=== PATIENT | female | born 1995 | race African-American/Black ===

== ENCOUNTER 2019-11-12 10:42 | Emergency (ER) | payer OTHER, SELFPAY ==
[2019-11-12 11:11] VITALS: BP 150/99; PULSE 102; RESP 18; TEMP 37.4; O2SAT 100
--- NOTE | 2019-11-12 11:48 | ED.URI ---
HPI - URI/Sore Throat General Chief Complaint: Upper Respiratory Infection Stated Complaint: Strep since Friday Time Seen by Provider: 11/12/19 11:31 Source: patient Mode of arrival: ambulatory Limitations: no limitations History of Present Illness HPI Narrative: This is a 24 year old female that presents to the ER for cold symptoms x 5 days. Reports fever, rhinorrhea, congestion and sore throat. Reports she was seen by her PCP for this 3 days ago and diagnosed with strep throat. She has been taking her antibiotics as prescribed with little relief. Denies shortness of breath or inability to swallow. Related Data Allergies Allergy/AdvReac Type Severity Reaction Status Date / Time No Known Allergies Allergy Verified 11/12/19 11:15 Review of Systems Review of Systems: Narrative: CONSTITUTIONAL: Reports fever, chills ENT: Reports rhinorrhea, congestion, sore throat, and otalgia. RESPIRATORY: Denies dyspnea. All systems reviewed & are unremarkable except as noted in HPI and below PMFSH Past Medical History Medical History (Updated 11/12/19 @ 12:34 by Lilian Jolley PA-C) Eczema of lower extremity Vitamin deficiency Wrist pain Family History Family History (Updated 11/09/19 @ 08:14 by Michelle Aguilera CMA) Mother Type 2 diabetes mellitus Social History Social History Smoking status: Never smoker Alcohol intake: current Gender identity (if verbalized by the patient): Female Exam Narrative: Exam Narrative: GENERAL: Well-appearing, obese, and in no acute distress. HEAD: Normocephalic, atraumatic. EYES: EOMI. ENT: Nares clear, no rhinorrhea or epistaxis. Mucous membranes moist. Oropharynx with mild symmetric tonsillar hypertrophy, no exudate or other lesions. Uvula midline. No trismus. Bilateral TMs pearly starr non-bulging NECK: Supple. No adenopathy or masses. CHEST: Clear to auscultation. No respiratory distress. No wheezes rales or rhonchi HEART: Regular rate and rhythm. No murmur heard. Normal peripheral pulses. EXTREMITIES: Normal range of motion. No edema. SKIN: Warm, dry, no rash. NEURO: No focal deficits. Alert and oriented x3. PSYCH: Normal mood and affect Course Vital Signs Vital signs: Vital Signs Temperature 99.4 F 11/12/19 11:11 Pulse Rate 102 H 11/12/19 11:11 Respiratory Rate 18 11/12/19 11:11 Blood Pressure 150/99 H 11/12/19 11:11 Pulse Oximetry 100 11/12/19 11:11 Temperature 99.4 F 11/12/19 11:11 Pulse Rate 102 H 11/12/19 11:11 Respiratory Rate 18 11/12/19 11:11 Blood Pressure 150/99 H 11/12/19 11:11 Pulse Oximetry 100 11/12/19 11:11 MDM - URI/Sore Throat MDM Narrative Medical decision making narrative: Patient presents to the emergency department for sore throat times 5 days. She was seen by her PCP for this 3 days ago and started on Augmentin. Reports little relief. She is afebrile and nontoxic-appearing. Mild symmetric tonsillar hypertrophy, uvula is midline. No evidence for peritonsillar abscess. Influenza screen is negative. Patient Lab Data Labs: Influenza A Screen Negative Reference Range: Negative Influenza B Screen Negative Reference Range: Negative Critical Care Time Critical Care Time Critical Care Time: No Discharge Plan Discharge Clinical Impression: Strep throat Patient Disposition: Home, Self-Care Condition: Stable Instructions: Antibiotic Form, Strep Throat (ED) Additional Instructions: Return to the emergency department if you experience fever > 101, you are unable to swallow, trouble breathing, or any other symptoms that are concerning to you Finish antibiotics as prescribed. You may use lozenges or Chloraseptic spray for sore throat. Tylenol or ibuprofen for pain. Take steroid as prescribed Follow-up with your primary care doctor Prescriptions: New methylprednisolone 4 mg tablets,dose pack See Rx Instructions .ROUTE .COMPLEX Qty: 21 RF:
== END 2019-11-12 12:52 | disposition home or self-care (01) ==
PROVIDERS: Emergency Provider Emergency Medicine; PCP Internal Medicine
DX: J02.0 Streptococcal pharyngitis (principal); E56.9 Vitamin deficiency, unspecified
CPT/HCPCS: 87804; 99283

== ENCOUNTER 2021-11-05 08:44 | Outpatient (CLI) | payer OTHER, SELFPAY ==
[2021-11-05 09:27] LABS: Basophils Absolute Auto 0.1 K/mm3 (0.0-0.1); Basophils Percent Auto 0.7 % (0.2-1.2); Eosinophils Absolute Auto 0.1 K/mm3 (0-0.3); Eosinophils Percent Auto 1.2 % (0-4.4); Hematocrit 42.8 % (37.0-47.0); Hemoglobin 13.5 g/dL (12.0-15.0); Immature Granulocyte Absolute 0.01 K/mm3 (0.00-0.031); Immature Granulocyte Percent A 0.1 % (0-0.5); Lymphocytes Absolute Auto 1.94 K/mm3 (0.9-3.2); Mean Corpuscular HGB Conc 31.5 g/dl (32-36); Mean Corpuscular Hemoglobin 25.4 pg (26-34); Mean Corpuscular Volume 80.6 fl (80-100); Monocytes Absolute Auto 0.7 K/mm3 (0.1-0.6); Monocytes Percent Auto 9.5 % (2.6-8.5); Neutrophils Absolute Auto 4.7 K/mm3 (1.3-6.7); Neutrophils Percent Auto 62.5 % (45.5-73.1); Platelet Count Result 311 k/mm3 (150-375); Red Blood Count 5.31 M/mm3 (4.2-5.4); Red Cell Distribution Width 13.2 % (11.5-14.5); White Blood Count 7.5 K/mm3 (4.5-10.0)
[2021-11-05 09:36] LABS: Add Urine Microscopic? YES; Appearance Urine Clear (Clear); Bacteria Urine Trace /hpf; Bilirubin Urine Negative (Negative); Blood Urine Negative (Negative); Color Urine Yellow (Yellow); Glucose Urine UA Negative (Negative); Ketones Urine Negative (Negative); Leukocyte Esterase Ur Trace LEU/UL (Negative); Mucus Urine Rare /lpf; Nitrate Urine Negative (Negative); Protein Urine Negative (Negative); Specific Grav Ur 1.014 (1.001-1.035); Squamous Epithelial Cell Urine Many /hpf (Few); Urobilinogen Urine Negative mg/dL (<2.0)
[2021-11-05 09:39] LABS: Alanine Aminotransferase 17 U/L (4-35); Alkaline Phosphatase 69 U/L (38-126); Anion Gap 5 mmol/L (8-16); Aspartate Amino Transferase 23 U/L (14-36); Bilirubin,Total 0.6 mg/dL (0.2-1.3); Blood Urea Nitrogen 9 mg/dL (7-17); Calcium 8.5 mg/dL (8.4-10.2); Carbon Dioxide 26 mmol/L (22-30); Chloride 107 mmol/L (98-107); Estimated Glomerular Filt Rate > 60; Glucose 82 mg/dL (65-110); Potassium 4.2 mmol/L (3.4-5.0); Sodium 138 mmol/L (137-145)
[2021-11-05 09:46] LABS: Hemoglobin A1C 5.3 % (<5.7)
[2021-11-05 10:12] LABS: Free T4 Free Thyroxine 1.08 ng/mL (0.78-2.19)
[2021-11-05 10:19] LABS: HIV 1/2 Ab P24 Ag Result Negative (Negative)
[2021-11-05 10:23] LABS: Hepatitis B Surface Antigen Negative (Negative)
[2021-11-05 10:40] LABS: Hepatitis C Virus Antibody Negative (Negative)
[2021-11-08 04:16] LABS: Triiodothyronine T3 Free 2.7 pg/mL (2.3-4.2)
== END 2021-11-05 08:45 | disposition home or self-care (01) ==
LOC: ANHLAB 08:47
PROVIDERS: PCP Internal Medicine; Visit Provider Nurse Practitioner
DX: E66.01 Morbid (severe) obesity due to excess calories (principal); Z01.818 Encounter for other preprocedural examination
CPT/HCPCS: 36415; 80053; 81001; 83036; 84439; 84443; 84481; 85025; 86703; 86803; 87340; G0432

== ENCOUNTER 2022-01-10 09:10 | Outpatient (CLI) | payer OTHER, SELFPAY ==
[2022-01-10 09:42] LABS: Appearance Urine Slightly Cloudy (Clear); Basophils Absolute Auto 0.1 K/mm3 (0.0-0.1); Basophils Percent Auto 0.6 % (0.2-1.2); Bilirubin Urine Negative (Negative); Color Urine Yellow (Yellow); Eosinophils Absolute Auto 0.1 K/mm3 (0-0.3); Eosinophils Percent Auto 1.1 % (0-4.4); Glucose Urine UA Negative (Negative); Hematocrit 41.5 % (37.0-47.0); Hemoglobin 12.9 g/dL (12.0-15.0); Immature Granulocyte Absolute 0.03 K/mm3 (0.00-0.031); Immature Granulocyte Percent A 0.4 % (0-0.5); Ketones Urine Negative (Negative); Leukocyte Esterase Ur Trace LEU/UL (Negative); Lymphocytes Absolute Auto 2.22 K/mm3 (0.9-3.2); Lymphocytes Percent Auto 27.4 % (18.3-44.2); Mean Corpuscular HGB Conc 31.1 g/dl (32-36); Mean Corpuscular Hemoglobin 24.8 pg (26-34); Mean Corpuscular Volume 79.8 fl (80-100); Mean Platelet Volume 10.3 fl (7.4-10.4); Monocytes Absolute Auto 0.9 K/mm3 (0.1-0.6); Monocytes Percent Auto 10.6 % (2.6-8.5); Neutrophils Absolute Auto 4.9 K/mm3 (1.3-6.7); Neutrophils Percent Auto 59.9 % (45.5-73.1); Nitrate Urine Negative (Negative); Platelet Count Result 332 k/mm3 (150-375); Protein Urine Negative (Negative); Red Cell Distribution Width 14.2 % (11.5-14.5); Specific Grav Ur 1.025 (1.001-1.035); Urobilinogen Urine 0.2 mg/dL (<2.0); White Blood Count 8.1 K/mm3 (4.5-10.0)
[2022-01-10 09:47] LABS: Bacteria Urine Trace /hpf; Mucus Urine Rare /lpf; Squamous Epithelial Cell Urine Many /hpf (Few); WBC Urine 0-3 /hpf
[2022-01-10 09:49] LABS: Alanine Aminotransferase 15 U/L (4-35); Alkaline Phosphatase 67 U/L (38-126); Anion Gap 6 mmol/L (8-16); Aspartate Amino Transferase 23 U/L (14-36); Bilirubin,Total 0.5 mg/dL (0.2-1.3); Blood Urea Nitrogen 12 mg/dL (7-17); Calcium 8.8 mg/dL (8.4-10.2); Carbon Dioxide 26 mmol/L (22-30); Chloride 106 mmol/L (98-107); Estimated Glomerular Filt Rate > 60; Glucose 81 mg/dL (65-110); Potassium 4.1 mmol/L (3.4-5.0); Sodium 138 mmol/L (137-145)
[2022-01-10 10:10] LABS: Add Urine Microscopic? YES; Blood Urine Trace-Intact (Negative)
[2022-01-10 10:15] LABS: Free T4 Free Thyroxine 1.19 ng/mL (0.78-2.19)
[2022-01-10 10:29] LABS: HIV 1/2 Ab P24 Ag Result Negative (Negative)
[2022-01-10 10:30] LABS: Hepatitis B Surface Antigen Negative (Negative)
[2022-01-10 10:48] LABS: Hepatitis C Virus Antibody Negative (Negative)
[2022-01-13 07:44] LABS: Triiodothyronine T3 Free 3.4 pg/mL (2.3-4.2)
== END 2022-01-10 09:11 | disposition home or self-care (01) ==
LOC: ANHLAB 09:13
PROVIDERS: PCP Internal Medicine; Visit Provider Nurse Practitioner
DX: Z01.818 Encounter for other preprocedural examination (principal)
CPT/HCPCS: 36415; 80053; 81001; 83036; 84439; 84443; 84481; 85025; 86703; 86803; 87340; G0432

== ENCOUNTER 2022-02-10 13:46 | Emergency (ER) | payer OTHER, SELFPAY ==
--- NOTE | ~2022-02-10 | US_ITS ---
EXAMINATION: US venous doppler [facility] DATE: 02/10/2022 14:27 INDICATION: calf pain/lower limb pain, 3 wks post op . TECHNIQUE: Grayscale images without and with compression and Doppler images of the left lower extremi ty veins were obtained. COMPARISON: None FINDINGS: . The left common femoral vein, profunda femoral vein, femoral vein, popliteal vein, peroneal vein, pos terior tibial veins, gastrocnemius vein, and greater saphenous vein are patent, noting somewhat limit ed visualization of the calf veins. IMPRESSION: 1. Patent left lower extremity veins. No evidence of deep venous thrombosis Reviewed, dictated and finalized at location K.
[2022-02-10 13:51] VITALS: BP 153/77; PULSE 90; RESP 18; TEMP 36.6; O2SAT 99
--- NOTE | 2022-02-10 14:57 | ED.EXTPRO ---
HPI - Extremity Problem General Chief complaint: Extremity Problem,Nontraumatic Stated complaint: Left leg pain Time Seen by Provider: 02/10/22 14:07 Source: patient Mode of arrival: ambulatory Limitations: no limitations History of Present Illness HPI Narrative: 26-year-old female presents today with complaints of left calf pain noted about 3 days ago. Patient recently had a tummy tuck done within the last month and has concerns for blood clots. Patient denies any swelling to left leg, redness, or warmth to left leg. Patient has had an uneventful recovery from her tummy tuck. Patient is wearing her compression stockings every night as she was instructed. No other concerns at this time. Related Data Home Medications Medication Instructions Recorded Confirmed No Home Medications 07/11/21 10/31/21 Allergies Allergy/AdvReac Type Severity Reaction Status Date / Time NSAIDS (Non-Steroidal AdvReac unkown Verified 02/10/22 13:53 Anti-Inflamma Review of Systems Review of Systems: CONSTITUTIONAL: Denies fever, chills, or sweats. EYES: Denies visual changes, redness, or discharge. ENT: Denies rhinorrhea, congestion, sore throat, or otalgia. CARDIOVASCULAR: Denies chest pain, palpitations, or edema. RESPIRATORY: Denies cough or dyspnea. GASTROINTESTINAL: Denies abdominal pain, nausea, vomiting, or diarrhea. GENITOURINARY: Denies dysuria or hematuria. SKIN: Denies rash or itching. MUSCULOSKELETAL: Left calf pain. Denies back pain, joint pain, or myalgia. NEUROLOGIC: Denies headache, numbness, dizziness, or weakness. PSYCHIATRIC: Denies anxiety or depression. PMFSH Past Medical History Medical History Vitamin deficiency Wrist pain Surgical History Surgical History History of weight loss surgery 2020 Family History Family History Mother Type 2 diabetes mellitus Social History Social History Smoking status: Never smoker Alcohol intake: current Gender identity (if verbalized by the patient): Female Exam Narrative: GENERAL: Well-appearing, well-nourished, and in no acute distress. HEAD: Normocephalic, atraumatic. EYES: PERRLA and EOMI. ENT: Nares clear, no rhinorrhea or epistaxis. Mucous membranes moist. Oropharynx without tonsillar hypertrophy exudate or other lesions. Bilateral TMs pearly starr nonbulging NECK: Supple. No adenopathy or masses. No carotid bruits or JVD CHEST: Clear to auscultation. No respiratory distress. No wheezes rales or rhonchi HEART: Regular rate and rhythm. No murmur heard. Normal peripheral pulses. ABDOMEN: Abdominal binder on, nontender, nondistended, normal active bowel sounds. EXTREMITIES: Left calf pain tender with deep palpation. No swelling noted, no erythema, no warmth. Normal range of motion. No edema. SKIN: Warm, dry, no rash. NEURO: No focal deficits. Alert and oriented x3. PSYCH: Normal mood and affect. Course Course Emergency Course: Discussed results with patient. Patient is relieved that ultrasound is negative for blood clot. Patient no other concerns at this time. 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 Educated patient that leg pain could be originating from the back. Instructions on stretching and using Tylenol as needed due to patient's weight loss surgery history she is not supposed to be on NSAIDs. Vital Signs Vital signs: Vital Signs Temperature 36.6 C 02/10/22 13:51 Pulse Rate 90 02/10/22 13:51 Respiratory Rate 18 02/10/22 13:51 Blood Pressure 153/77 H 02/10/22 13:51 Pulse Oximetry 99 02/10/22 13:51 Oxygen Delivery Room Air 02/10/22 13:51 Temperature 36.6 C 02/10/22 13:51 Pulse Rate 90 02/10/22 13:51 Respiratory Rate 18 02/10/22 13:51
== END 2022-02-10 15:15 | disposition home or self-care (01) ==
PROVIDERS: Emergency Provider Nurse Practitioner Family; PCP Internal Medicine
DX: M79.662 Pain in left lower leg (principal); M54.50 Low back pain, unspecified; E56.9 Vitamin deficiency, unspecified
CPT/HCPCS: 93971; 99284

== ENCOUNTER 2022-06-08 17:40 | Emergency (ER) | payer OTHER, SELFPAY ==
[2022-06-08 17:47] VITALS: BP 128/93; PULSE 89; RESP 16; TEMP 39.2; O2SAT 100
--- NOTE | 2022-06-08 17:47 | ED.GENADULT ---
HPI - General Adult General Chief complaint: Upper Respiratory Infection Stated complaint: fever, chills, nausea Time Seen by Provider: 06/08/22 18:03 Source: patient and RN notes reviewed Mode of arrival: ambulatory Limitations: no limitations History of Present Illness HPI narrative: 27-year-old female presents concern for 1 day history of fever, sore throat, headache and nasal drainage. She reports she works at a daycare, but she does not know any confirmed exposure to she reports her children at work are often sick. She denies taking any [id number] medications. She denies shortness of breath or cough. complaint: Fever Related Data Allergies Allergy/AdvReac Type Severity Reaction Status Date / Time NSAIDS (Non-Steroidal AdvReac unkown Verified 02/10/22 13:53 Anti-Inflamma Review of Systems Review of Systems: CONSTITUTIONAL: Reports malaise, fever. EYES: Denies visual changes, redness, or discharge. ENT: Reports rhinorrhea, congestion, and sore throat. Denies sinus pain, otalgia CARDIOVASCULAR: Denies chest pain, palpitations, or edema. RESPIRATORY: Denies cough. Denies dyspnea. GASTROINTESTINAL: Denies abdominal pain, nausea, vomiting, diarrhea SKIN: Denies rash or itching. MUSCULOSKELETAL: Reports myalgia. NEUROLOGIC: Reports headache. All systems reviewed & are unremarkable except as noted in HPI and below PMFSH Past Medical History Medical History Vitamin deficiency Wrist pain Surgical History Surgical History History of weight loss surgery 2020 Family History Family History Mother Type 2 diabetes mellitus Social History Social History Smoking status: Never smoker Alcohol intake: current Gender identity (if verbalized by the patient): Female Comments At time of signature, agree with nursing past medical, surgical, social and family history. There is no relevant family history pertinent to the presenting complaint Exam Narrative: GENERAL: Nontoxic and in no acute distress. HEAD: Normocephalic EYES: PERRLA, conjunctivae clear ENT: Nares clear, turbinates edematous and erythematous. Mucous membranes moist. TM pearly starr with dull light reflex bilaterally; no tragal tenderness. Oropharynx mildly erythematous without lesions. Tonsils mildly enlarged and without exudate, no drooling, no hoarseness, no trismus, uvula midline. NECK: Supple. No lymphadenopathy CHEST: Clear to auscultation, breath sounds equal. No wheezing, rhonchi, rales, or stridor. No respiratory distress, speaks in full sentences. HEART: Regular rate and rhythm. No murmur heard. SKIN: Warm, dry, no rash. NEURO: Alert and oriented x3. PSYCH: Normal mood and affect Course Course Emergency Course: Patient is aware of diagnosis, understands and agrees to treatment plan. Anticipatory guidance given. Patient agrees to follow-up as directed and is aware of reasons to seek care at the emergency department. Portions of this record may have been created with voice recognition software Level of Care: Express Care Visit Vital Signs Vital signs: Reviewed. Medical Decision Making MDM Narrative Medical decision making narrative: Differential diagnosis considered: Claudio virus, strep pharyngitis, allergic rhinitis, upper respiratory tract infection, sinusitis, rhinosinusitis, nasopharyngitis. viral pharyngitis, otitis media, otitis externa, pneumonia, bronchitis, viral cough syndrome, viral syndrome, and influenza. Exam findings show no acute concerns or changes; patient is non-toxic appearing and is in no distress. Patient is appropriate for outpatient treatment and follow-up. Critical Care Time Critical Care Time Critical Care Time: No Discharge Plan Discharge Clinical Impression: Acute viral syndr
[2022-06-09 19:15] LABS: SARS-CoV-2 RNA PCR Negative
== END 2022-06-08 18:40 | disposition home or self-care (01) ==
PROVIDERS: Emergency Provider Nurse Practitioner; PCP Internal Medicine
DX: B34.9 Viral infection, unspecified (principal); Z20.822 Contact with and (suspected) exposure to COVID-19
CPT/HCPCS: 87081; 87426; 87804; 87880; 99213; C9803; G0463; U0003; U0005

== ENCOUNTER 2023-01-12 19:32 | Emergency (ER) | payer OTHER, SELFPAY ==
--- NOTE | ~2023-01-12 | XR_ITS ---
EXAMINATION: XR shoulder RT min 2V DATE: 01/12/2023 22:10 INDICATION: Right shoulder injury and pain. TECHNIQUE: 4 views of right shoulder were obtained. COMPARISON: None. FINDINGS: Bone alignment is normal. No fracture. Glenohumeral joint is normal. There is mild acromioc lavicular joint osteoarthritis. IMPRESSION: 1. Mild acromioclavicular joint osteoarthritis. Reviewed, dictated and finalized at location A.
--- NOTE | ~2023-01-12 | CT_ITS ---
EXAMINATION: CT brain wo con DATE: 01/12/2023 22:36 INDICATION: Head injury. TECHNIQUE: Computed tomography (CT) of the head was performed without intravenous contrast. The mA wa s adjusted according to patient size. Iterative reconstruction technique was employed. The dose-lengt h product was 605.33 mGy-cm. COMPARISON: None FINDINGS: There is no intracranial hemorrhage, acute infarction, or abnormal intracranial mass lesion . The ventricles are normal in size. The orbits are normal. The mastoid air cells are normal. The par anasal sinuses are clear. IMPRESSION: 1. Normal brain. Reviewed, dictated and finalized at location A. IMPRESSION: 1. Normal brain.
--- NOTE | ~2023-01-12 | CT_ITS ---
EXAMINATION: CT cervical spine wo con DATE: 01/12/2023 22:37 INDICATION: Neck pain. Injury. TECHNIQUE: Computed tomography (CT) of the cervical spine was performed without intravenous contrast. Automated exposure control and iterative reconstruction technique were employed. The dose-length pro duct was 521.62 mGy-cm. COMPARISON: None FINDINGS: There is 3 degrees dextrocurvature of cervical spine. There is mild kyphosis of cervical sp ine. Vertebral body heights are normal. Intervertebral disc heights are normal. The following disc le vels are specifically discussed: C2-C3: There is no uncovertebral joint osteoarthritis. There is mild left facet joint osteoarthritis. There is no neural foraminal stenosis. There is no central canal stenosis. C3-C4: There is no uncovertebral joint osteoarthritis. There is severe right and mild left facet join t osteoarthritis. There is no neural foraminal stenosis. There is no central canal stenosis. C4-C5: There is no uncovertebral joint osteoarthritis. There is no facet joint osteoarthritis. There is no neural foraminal stenosis. There is no central canal stenosis. C5-C6: There is no uncovertebral joint osteoarthritis. There is no facet joint osteoarthritis. There is no neural foraminal stenosis. There is no central canal stenosis. C6-C7: There is no uncovertebral joint osteoarthritis. There is no facet joint osteoarthritis. There is no neural foraminal stenosis. There is no central canal stenosis. C7-T1: There is no uncovertebral joint osteoarthritis. There is moderate bilateral facet joint osteoa rthritis. There is no neural foraminal stenosis. There is no central canal stenosis. IMPRESSION: 1. No fracture. 2. Mild cervical spondylosis. Reviewed, dictated and finalized at location A.
[2023-01-12 20:01] VITALS: BP 151/90; PULSE 90; RESP 16; TEMP 36.7; O2SAT 100
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
[2023-01-12] MEDS: ACETAMINOPHEN 500 MG TABLET 1000 MG PO (22:34)
[2023-01-12] MEDS: CYCLOBENZAPRINE HCL 5 MG TABLET PO (22:34)
--- NOTE | 2023-01-12 23:28 | PC.NURSE ---
This RN assumed care of patient.
== END 2023-01-12 23:51 | disposition home or self-care (01) ==
PROVIDERS: Emergency Provider Physician Assistant; PCP Internal Medicine
DX: S16.1XXA Strain of muscle, fascia and tendon at neck level, initial encounter (principal); S09.90XA Unspecified injury of head, initial encounter; E55.9 Vitamin D deficiency, unspecified; M19.011 Primary osteoarthritis, right shoulder; Y04.2XXA Assault by strike against or bumped into by another person, initial encounter
CPT/HCPCS: 70450; 72125; 73030; 99284; A9270

== ENCOUNTER 2023-01-18 11:24 | Emergency (ER) | payer OTHER, SELFPAY ==
[2023-01-18 11:36] VITALS: BP 179/117; PULSE 111; RESP 18; TEMP 37.2; O2SAT 100
[2023-01-18 13:45] VITALS: BP 146/76; PULSE 98; TEMP 36.8; O2SAT 100
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
== END 2023-01-18 15:20 | disposition home or self-care (01) ==
PROVIDERS: Emergency Provider General Practice; PCP Internal Medicine
DX: F43.0 Acute stress reaction (principal); S19.9XXD Unspecified injury of neck, subsequent encounter; S49.91XD Unspecified injury of right shoulder and upper arm, subsequent encounter; M19.011 Primary osteoarthritis, right shoulder; Y09 Assault by unspecified means
CPT/HCPCS: 99281

== ENCOUNTER 2023-02-14 10:31 | Outpatient (CLI) | payer OTHER, SELFPAY ==
[2023-02-14 10:57] LABS: Hematocrit 39.2 % (37.0-47.0); Hemoglobin 12.1 g/dL (12.0-15.0); Mean Corpuscular HGB Conc 30.9 g/dl (32-36); Mean Corpuscular Hemoglobin 22.7 pg (26-34); Mean Corpuscular Volume 73.5 fl (80-100); Mean Platelet Volume 9.9 fl (7.4-10.4); Platelet Count Result 368 k/mm3 (150-375); Red Blood Count 5.33 M/mm3 (4.2-5.4); Red Cell Distribution Width 14.6 % (11.5-14.5); White Blood Count 6.2 K/mm3 (4.5-10.0)
== END 2023-02-14 10:32 | disposition home or self-care (01) ==
PROVIDERS: PCP Internal Medicine; Visit Provider Obstetrics & Gynecology
DX: N92.0 Excessive and frequent menstruation with regular cycle (principal)
CPT/HCPCS: 36415; 85027

== ENCOUNTER 2023-03-24 09:52 | Outpatient (CLI) | payer OTHER, SELFPAY ==
[2023-03-24 10:36] LABS: Hematocrit 40.7 % (37.0-47.0); Hemoglobin 12.9 g/dL (12.0-15.0); Mean Corpuscular HGB Conc 31.7 g/dl (32-36); Mean Corpuscular Hemoglobin 24.1 pg (26-34); Mean Corpuscular Volume 76.1 fl (80-100); Mean Platelet Volume 10.5 fl (7.4-10.4); Platelet Count Result 345 k/mm3 (150-375); Red Blood Count 5.35 M/mm3 (4.2-5.4); Red Cell Distribution Width 15.9 % (11.5-14.5); White Blood Count 8.2 K/mm3 (4.5-10.0)
== END 2023-03-24 09:53 | disposition home or self-care (01) ==
LOC: ANHLAB 09:53
PROVIDERS: PCP Internal Medicine; Visit Provider Obstetrics & Gynecology
DX: D64.9 Anemia, unspecified (principal)
CPT/HCPCS: 36415; 85027

== ENCOUNTER 2023-10-10 16:25 | Emergency (ER) | payer OTHER, SELFPAY ==
[2023-10-10 16:57] VITALS: BP 147/88; PULSE 82; RESP 16; TEMP 37.2; O2SAT 100
--- NOTE | 2023-10-10 17:15 | ED.URI ---
HPI - URI/Sore Throat General Chief Complaint: Upper Respiratory Infection Stated Complaint: SORE THROAT/LIGHT HEADED/DIZZY/NO ENERGY Time Seen by Provider: 10/10/23 17:08 Source: patient and RN notes reviewed Mode of arrival: ambulatory Limitations: no limitations History of Present Illness HPI Narrative: Patient presents today complaining of fatigue, fever, sore throat, dizziness, rhinorrhea, cough since last night. She has been taking Tylenol with some relief. Exposed to COVID by a co-worker. Patient is a teacher. Related Data Home Medications Medication Instructions Recorded Confirmed No Home Medications 10/10/23 10/10/23 Allergies Allergy/AdvReac Type Severity Reaction Status Date / Time NSAIDS (Non-Steroidal AdvReac unkown Verified 10/10/23 16:53 Anti-Inflamma Review of Systems Review of Systems: CONSTITUTIONAL: Denies body aches, chills, or sweats.+ fever, fatigue EYES: Denies visual changes, redness, or discharge. ENT: Denies congestion, or otalgia.+ rhinorrhea, sore throat CARDIOVASCULAR: Denies chest pain, palpitations, or edema. RESPIRATORY: Denies dyspnea.+ cough GASTROINTESTINAL: Denies abdominal pain, nausea, vomiting, or diarrhea. GENITOURINARY: Denies dysuria or hematuria. SKIN: Denies rash, itching, or wounds. MUSCULOSKELETAL: Denies back pain, joint pain, or myalgia. NEUROLOGIC: Denies headache, numbness, tingling, or weakness.+ dizziness PSYCH: Denies depression or anxiety. [facility] Past Medical History Medical History Vitamin deficiency Wrist pain Surgical History Surgical History History of weight loss surgery 2020 Family History Family History Mother Type 2 diabetes mellitus Social History Social History Smoking status: Never smoker Alcohol intake: current Gender identity (if verbalized by the patient): Female Comments At time of signature, I have reviewed and agree with nursing past medical, surgical, social and family history unless otherwise noted. Please see nursing chart for further information. There is no relevant family history pertinent to the presenting complaint Exam Narrative: GENERAL: Mildly ill-appearing, well-nourished, and in no acute distress. HEAD: Normocephalic, atraumatic. EYES: EOMI. No redness or drainage. Conjunctivae normal. ENT: Mucous membranes pink and moist. Nares clear. No rhinorrhea. TMs normal bilaterally. Throat normal. Uvula midline. NECK: Normal AROM. Supple. No lymphadenopathy. CHEST: No respiratory distress. Clear to auscultation. HEART: Regular rate and rhythm. No murmur appreciated. EXTREMITIES: Normal range of motion. No edema. SKIN: Warm, dry, no rash. Capillary refill normal. Normal skin turgor. NEURO: No focal deficits. Alert and oriented x3. Gait steady. PSYCH: Normal affect. No signs of depression or anxiety. Course Course Level of Care: Express Care Visit Vital Signs Vital signs: Vital Signs Temperature 99 F 10/10/23 16:57 Pulse Rate 82 10/10/23 16:57 Respiratory Rate 16 10/10/23 16:57 Blood Pressure 147/88 H 10/10/23 16:57 Pulse Oximetry 100 10/10/23 16:57 Temperature 99 F 10/10/23 16:57 Pulse Rate 82 10/10/23 16:57 Respiratory Rate 16 10/10/23 16:57 Blood Pressure 147/88 H 10/10/23 16:57 Pulse Oximetry 100 10/10/23 16:57 Reviewed MDM - URI/Sore Throat MDM Narrative Medical decision making narrative: COVID positive, influenza negative. Discussed [id number] medication and duration of illness and quarantine. Anticipatory guidance given. Differential Diagnosis Differential diagnosis: Likely upper respiratory infection, viral infection, influenza, pharyngitis and other (COVID-19, strep throat) Lab
== END 2023-10-10 17:43 | disposition home or self-care (01) ==
PROVIDERS: Emergency Provider Nurse Practitioner; PCP Internal Medicine
DX: U07.1 COVID-19 (principal)
CPT/HCPCS: 87081; 87426; 87804; 87880; 99213; G0463